=== PATIENT | female | born 1960 | race Caucasian/White ===

== ENCOUNTER 2016-10-25 13:12 | Emergency (ER) | payer OTHER | END 2016-10-25 16:11 | disposition home or self-care (01) | LOC: ER1 13:12 | DX: S39.012A Strain of muscle, fascia and tendon of lower back, initial encounter (principal); G89.29 Other chronic pain; Z90.49 Acquired absence of other specified parts of digestive tract; Z88.2 Allergy status to sulfonamides; Z91.040 Latex allergy status; Z79.891 Long term (current) use of opiate analgesic; X58.XXXA Exposure to other specified factors, initial encounter | CPT/HCPCS: 72131; 99283 ==

== ENCOUNTER 2016-11-24 15:41 | Emergency (ER) | payer OTHER ==
[2016-11-24 16:34] LABS: RED BLOOD COUNT 3.69 M/UL (4.00-5.10); WHITE BLOOD COUNT 4.4 K/UL (4.5-11.0)
[2016-11-24 17:00] LABS: BUN/CREATININE RATIO 10 (0-10)
== END 2016-11-24 18:00 | disposition home or self-care (01) ==
LOC: ER1 15:41
PROVIDERS: Physician Assistant
DX: N39.0 Urinary tract infection, site not specified (principal); Z90.49 Acquired absence of other specified parts of digestive tract; Z88.1 Allergy status to other antibiotic agents; Z88.2 Allergy status to sulfonamides; Z91.040 Latex allergy status
CPT/HCPCS: 36415; 80053; 81001; 83690; 85025; 87077; 87086; 87186; 87210; 99284

== ENCOUNTER → 2017-01-09 | Outpatient (CLI) | payer OTHER | LOC: EMI 15:48 | DX: M50.30 Other cervical disc degeneration, unspecified cervical region (principal); M50.21 Other cervical disc displacement, high cervical region; M47.892 Other spondylosis, cervical region; M99.71 Connective tissue and disc stenosis of intervertebral foramina of cervical region | CPT/HCPCS: 72141 ==

== ENCOUNTER 2017-01-20 18:48 | Emergency (ER) | payer OTHER | END 2017-01-20 23:42 | disposition home or self-care (01) | LOC: ER1 18:48 | DX: N95.2 Postmenopausal atrophic vaginitis (principal); Z88.2 Allergy status to sulfonamides | CPT/HCPCS: 81001; 87077; 87086; 87186; 87210; 99283 ==